=== PATIENT | male | born 1975 | race Caucasian/White ===

== ENCOUNTER → 2019-03-25 | Outpatient (CLI) | payer BC ==
--- NOTE | 2019-03-26 09:16 | US ---
EXAMINATION TYPE: US st tissue neck DATE OF EXAM: 03/25/2019 COMPARISON: NONE CLINICAL HISTORY: 43-year-old male R59.0 Anterior cervical lymphadenopathy Right. Right lateral anter ior neck palpable, patient states he has noticed it x 1 month. Patient states he has not been sick r ecently but has been very tired. TECHNIQUE: Targeted ultrasound examination at the patient's palpable site along the right lateral nec k. Findings: Area of palpable scanned. A heterogeneous hypoechoic, solid mass is identified with internal vascula rity anterior to the common carotid artery. This measures 3.9 x 2.9 x 1.5 cm. Contralateral image taken. On the contralateral side, prominent lymph node is present measuring 2.2 x 1.4 x 0.7 cm , this is borderline enlarged by short axis dimension. IMPRESSION: 1. Enlarged lymph node measuring 2.9 cm short axis at the right lateral neck palpable site. Tissue sa mpling can be considered especially if there are suspicious clinical features. 2. Borderline enlarged 1.4 cm short axis left lateral lymph node on the contralateral side.
== END ==
LOC: RADUSMAIN 15:53
PROVIDERS: ATTEND Family Medicine
DX: R59.0 Localized enlarged lymph nodes (principal)
CPT/HCPCS: 76536

== ENCOUNTER → 2019-05-04 | Outpatient (CLI) | payer BC ==
--- NOTE | 2019-05-04 14:51 | CT ---
EXAMINATION TYPE: CT soft tissue neck w con DATE OF EXAM: 05/04/2019 2:40 PM COMPARISON: None HISTORY: Right neck mass CT DLP: 724 mGycm Automated exposure control for dose reduction was used. CONTRAST: CT scan of the neck is performed following , patient injected with 100 mL of Isovue 300. Axial image s are obtained, coronal and sagittal reformatted images are reviewed. FINDINGS: There is a heterogeneous mass involving the right submandibular region of the soft tissues of the right neck with compression of the jugular vein. This appears to be posterior to the submandib ular gland and extending superiorly into the right carotid space. There also appears to be asymmetry to the mucosa of the base the tongue and hypopharynx on the right. Direct visualization is recommended. Oropharynx and nasopharynx and oropharynx symmetric. Parotid glands have a normal appearance. Vocal cords have a normal appearance. Thyroid enhances homogeneously. Lung apices clear. There is a lymph node measuring a short axis of 8 mm within the left carotid space. IMPRESSION: 1. There is a mass overlying the area of palpable abnormality within the right neck measuring 2.5 x 2 .0 x 3.3 cm. This results in compression of the right jugular vein. Would favor a partially necrotic area of pathologic lymphadenopathy overt primary neoplasm.. 2. There is slight asymmetry on the right within the mucosa of the base of the tongue and hypopharynx . Mucosal lesion in the differential diagnosis. Direct visualization suggested.
== END | disposition home or self-care (01) ==
LOC: RADCTMAIN 14:17
PROVIDERS: ATTEND Otolaryngology
DX: I87.1 Compression of vein (principal); R22.1 Localized swelling, mass and lump, neck
CPT/HCPCS: 70491; Q9967

== ENCOUNTER → 2019-06-20 | Outpatient (CLI) | payer BC ==
--- NOTE | 2019-06-24 09:50 | PE ---
Nuclear medicine PET/CT HISTORY: Metastatic squamous cell carcinoma, initial Patient received 8.2 mCi F-18 FDG intravenously in delayed scanning performed from the skull base to the mid thighs. Localization and attenuation correction CT scan was performed. Small [id number] im aging obtained through the neck. Correlation to CT soft tissue neck 05/04/2019 Neck and chest: The right neck node seen on prior CT at the level of the hyoid bone anterior to the r ight sternocleidomastoid muscle is noted measuring 2.8 cm and shows associated hypermetabolic uptake and SUV is 14.6. There is a left neck node as described on prior CT and anterior to the left sternocl eidomastoid muscle with associated hypermetabolic uptake, SUV is 4.4. At the base of the tongue there is hypermetabolic uptake present, SUV 10.2, unclear as to whether this represents mass, recommend di rect visualization. There is no evident lung mass. No mediastinal, axillary, or hilar adenopathy. Small hiatal hernia is present. No pleural or pericardial effusion. ABDOMEN: No evident liver mass. No suspicious hypermetabolic uptake. No retroperitoneal adenopathy. Osseous structures are unremarkable IMPRESSION: Findings consistent with patient's history of metastatic squamous cell carcinoma.
== END | disposition home or self-care (01) ==
LOC: RADPETMAIN 12:27
PROVIDERS: ATTEND Otolaryngology
DX: C76.0 Malignant neoplasm of head, face and neck (principal); Z85.828 Personal history of other malignant neoplasm of skin
CPT/HCPCS: 78815; A9552

== ENCOUNTER 2019-07-13 04:10 | Emergency (ER) | payer BC ==
[2019-07-13 04:21] VITALS: TEMP 98.9
[2019-07-13] MEDS ORDERED: OXYMETAZOLINE 0.05% NASL SPRAY 1 SPRAY BOTTLE NASAL STA (04:56)
[2019-07-13] MEDS ORDERED: cloNIDine HCL 0.2 MG TAB PO STA (04:57)
[2019-07-13] MEDS ORDERED: LABETALOL 5 MG/ML VIAL MDV IVP STA (05:51)
[2019-07-13] MEDS ORDERED: TRANEXAMIC ACID 500 MG in SODIUM CHLORIDE 0.9% 100 ML IVPB ONE ×2 (06:00→06:47)
[2019-07-13 06:10] LABS: Basophils % (A) 0 %; Eosinophils # (A) 0.1 k/uL (0-0.7); Eosinophils % (A) 1 %; HGB 15.1 gm/dL (13.0-17.5); Lymphocytes # (A) 1.7 k/uL (1.0-4.8); Lymphocytes % (A) 19 %; MCH 30.5 pg (25.0-35.0); MCHC 33.6 g/dL (31.0-37.0); MCV 90.8 fL (80.0-100.0); Mean Platelet Volume 6.4; Monocytes # (A) 0.7 k/uL (0-1.0); Monocytes % (A) 8 %; Neutrophils % (A) 69 %; Platelet Count 360 k/uL (150-450); RBC 4.96 m/uL (4.30-5.90); RDW 12.9 % (11.5-15.5); WBC 8.7 k/uL (3.8-10.6)
[2019-07-13 06:19] LABS: Calcium 9.3 mg/dL (8.4-10.2); Potassium 4.1 mmol/L (3.5-5.1)
--- NOTE | 2019-07-13 06:19 | ED ---
General Adult HPI - General Source: patient Mode of arrival: ambulatory Limitations: no limitations - History of Present Illness Onset/Timin -: hour(s) Radiation: non-radiation Consistency: constant Improves with: none Worsens with: none Treatments Prior to Arrival: none <Gio De La Fuente - Last Filed: 07/13/19 06:12> <Puneet Lozano - Last Filed: 07/14/19 20:59> - General Chief complaint: Recheck/Abnormal Lab/Rx Stated complaint: post throat op issue Time Seen by Provider: 07/13/19 04:22 - History of Present Illness Initial comments: This patient is a 44-year-old man who presents to have evaluation for spitting up blood. 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 Patient states that he had peritonsillar lesion excised and also biopsy of lymph nodes. He had been doing well until proximally an hour ago when he had some coughing. Following the coughing he noticed that he was continuously spitting blood. He states that it is also felt like some is been running down the back of his throat and that he was swallowing it. He has a little bit of nausea. Patient denies any symptoms of anemia. No dyspnea, diaphoresis, chest pain or palpitations. No syncope or orthostatic symptoms. (Gio De La Fuente) - Related Data Home Medications Medication Instructions Recorded Confirmed Unable To Assess [Unable to Assess] 07/13/19 07/13/19 Allergies Allergy/AdvReac Type Severity Reaction Status Date / Time No Known Allergies Allergy Verified 07/13/19 04:21 Review of Systems ROS Other: All systems not noted in ROS Statement are negative. Constitutional: Denies: fever, chills ENT: Denies: throat pain Respiratory: Reports: as per HPI, cough, hemoptysis. Denies: dyspnea, wheezes Cardiovascular: Denies: chest pain, palpitations, syncope Gastrointestinal: Reports: nausea. Denies: abdominal pain, vomiting Skin: Denies: rash Neurological: Denies: headache, weakness, numbness Hematological/Lymphatic: Denies: easy bleeding <Gio De La Fuente - Last Filed: 07/13/19 06:12> ROS Other: All systems not noted in ROS Statement are negative. <Puneet Lozano - Last Filed: 07/14/19 20:59> ROS Statement: Those systems with pertinent positive or pertinent negative responses have been documented in the HPI. Past Medical History Past Medical History: Asthma, Cancer, Hyperlipidemia, Hypertension Additional Past Medical History / Comment(s): Throat History of Any Multi-Drug Resistant Organisms: None Reported Past Surgical History: Tonsillectomy Additional Past Surgical History / Comment(s): Throat Past Psychological History: No Psychological Hx Reported Smoking Status: Never smoker Past Alcohol Use History: None Reported Past Drug Use History: None Reported <MaeGio rodriguez - Last Filed: 07/13/19 06:12> General Exam Limitations: no limitations General appearance: alert, in no apparent distress Head exam: Present: atraumatic, normocephalic Eye exam: Present: normal appearance ENT exam: Present: mucous membranes moist, other (Patient appears to have small amount of blood trickling from peritonsillar site. no active arterial bleeding) Neck exam: Present: normal inspection, full ROM Respiratory exam: Present: normal lung sounds bilaterally. Absent: respiratory distress, wheezes, rales, rhonchi, stridor Cardiovascular Exam: Present: regular rate, normal rhythm, normal heart sounds. Absent: systolic murmur, diastolic murmur, rubs, gallop GI/Abdominal exam: Present: soft. Absent: tenderness Extremities exam: Present: normal inspection, normal capillary refill. Absent: pedal edema Neurological exam: Present: alert Skin exam: Present: warm, dry, intact, normal color. Absent: rash <SudhakarGio - Last Filed: 07/13/19 06:12> Course Vital Signs 07/13/19 07/13/19 07/13/19 04:15 05:59 06:11 Temperature 98.9 F Pulse Rate 84 107 H 90 Respiratory 16 22 18 Rate Blood Pressure 147/107 144/111 146/110 O2 Sat by Pulse 97 97 96 Oximetry 07/13/19 07/13/19 07/13/19 06:17 06:29 07:14 Temperature Pulse Rate 84 87 86 Respiratory 18 18 16 Rate Blood Pressure 130/106 122/91 124/102 O2 Sat by Pulse 96 96 96 Oximetry 07/13/19 07:36 Temperature Pulse Rate Respiratory Rate Blood Pressure 127/98 O2 Sat by Pulse Oximetry Medical Decision Making - Lab Data Result diagrams: 07/13/19 05:55 <MaejenniferGio - Last Filed: 07/13/19 06:12> - Lab Data Result diagrams: 07/13/19 05:55 07/13/19 05:55 <Puneet Lozano - Last Filed: 07/14/19 20:59> - Medical Decision Making I spoke with Dr. Leslie and he wanted the patient transferred to [facility]. I spoke with [facility] and they agreed to accept the transfer. (Puneet Lozano) - Lab Data Lab Results 07/13/19 07/13/19 07/13/19 Range/Units 05:55 05:55 05:55 WBC 8.7 (3.8-10.6) k/uL RBC 4.96 (4.30-5.90) m/uL Hgb 15.1 (13.0-17.5) gm/dL Hct 45.0 (39.0-53.0) % MCV 90.8 (80.0-100.0) fL MCH 30.5 (25.0-35.0) pg MCHC 33.6 (31.0-37.0) g/dL RDW 12.9 (11.5-15.5) % Plt Count 360 (150-450) k/uL Neutrophils % 69 % Lymphocytes % 19 % Monocytes % 8 % Eosinophils % 1 % Basophils % 0 % Neutrophils # 6.0 (1.3-7.7) k/uL Lymphocytes # 1.7 (1.0-4.8) k/uL Monocytes # 0.7 (0-1.0) k/uL Eosinophils # 0.1 (0-0.7) k/uL Basophils # 0.0 (0-0.2) k/uL PT 9.6 (9.0-12.0) sec INR 0.9 (<1.2) APTT 28.5 (22.0-30.0) sec Sodium 138 (137-145) mmol/L Potassium 4.1 (3.5-5.1) mmol/L Chloride 101 (98-107) mmol/L Carbon Dioxide 26 (22-30) mmol/L Anion Gap 11 mmol/L BUN 19 (9-20) mg/dL Creatinine 1.15 (0.66-1.25) mg/dL Est GFR (CKD-EPI)AfAm 90 (>60 ml/min/1.73 sqM) Est GFR (CKD-EPI)NonAf 78 (>60 ml/min/1.73 sqM) Glucose 114 H (74-99) mg/dL Calcium 9.3 (8.4-10.2) mg/dL Disposition <Gio De La Fuente - Last Filed: 07/13/19 06:12> - Out of Hospital Transfer - Req. Specs Out of Hospital Transfer - Requested Specifics: Other Emergency Center ([facility] ER) <Puneet Lozano - Last Filed: 07/14/19 20:59> Clinical Impression: Postoperative or surgical complication Disposition: OTHER INSTITUTION NOT DEFINED Referrals: Paxton Morris MD [Primary Care Provider] - 1-2 days
[2019-07-13 06:20] LABS: INR 0.9 (<1.2); Partial Thromboplastin Time 28.5 sec (22.0-30.0); Prothrombin Time 9.6 sec (9.0-12.0)
[2019-07-13 07:16] VITALS: PULSE 86; RESP 16
[2019-07-13 07:36] VITALS: BP 127/98
== END 2019-07-13 08:27 | disposition other institution (70) ==
LOC: EC 04:10
DX: J95.830 Postprocedural hemorrhage of a respiratory system organ or structure following a respiratory system procedure (principal); Z90.89 Acquired absence of other organs
CPT/HCPCS: 36415; 80048; 85025; 85610; 85730; 96365; 99284

== ENCOUNTER 2019-09-24 15:44 | Inpatient (IN) | payer BC ==
--- NOTE | 2019-09-24 16:20 | ED ---
ENT HPI - General Source: patient, family Mode of arrival: ambulatory Limitations: no limitations <Esteban Chery - Last Filed: 09/24/19 20:06> <Catherine Ku - Last Filed: 09/29/19 13:36> - General Chief complaint: ENT Stated complaint: Radiation patient/No appetite Time Seen by Provider: 09/24/19 15:59 - History of Present Illness Initial comments: Patient is a 44-year-old male presenting to emergency Department with a chief complaint of sore throat. Patient reports that he has been ongoing radiation on his cervical lymph nodes with a last dose being yesterday. Patient reports after the radiation he has not been able to eat. Patient reports only drinking small amounts of water. Patient is concerned for the increased production of saliva. She reports he was given scopolamine patches in order to reduce the saliva production however continues. Patient does report some nausea but no vomiting. Patient denies spitting up any blood. Patient reports she has not been eating for further last 3 weeks. He reports his only been drinking about 8 ounces of water daily. (Esteban Chery) - Related Data Home Medications Medication Instructions Recorded Confirmed Atorvastatin [Lipitor] 10 mg PO DAILY 09/25/19 09/25/19 Fluticasone/Salmeterol [Advair 1 puff INHALATION RT-BID 09/25/19 09/25/19 250-50 Diskus] Losartan/Hydrochlorothiazide 1 tab PO DAILY 09/25/19 09/25/19 [Losartan-Hctz 100-12.5 mg Tab] Previous Rx's Medication Instructions Recorded HYDROcodone/APAP 5-325MG [Rebuck 1 each PO Q4HR PRN #12 tab 09/28/19 5-325] Lidocaine Viscous [Xylocaine 30 ml PO TID #30 ml 09/28/19 Viscous 2%] Mag Hydrox/Al Hydrox/Simeth 30 ml PO TID #60 cup 09/28/19 [Maalox] Metoprolol Tartrate [Lopressor] 25 mg PO BID 30 Days #60 tab 09/28/19 Nystatin 100,000 Unit/ml Susp 3,000,000 unit PO TID 10 Days #30 09/28/19 [Mycostatin Oral Susp] cup Polyethylene Glycol 3350 [Miralax] 17 gm PO DAILY PRN #30 powd.pack 09/28/19 diphenhydrAMINE ELIXIR [Benadryl 25 mg PO QID #60 cup 09/28/19 Elixir] Allergies Allergy/AdvReac Type Severity Reaction Status Date / Time peanut Allergy Unknown Verified 09/24/19 17:33 Review of Systems ROS Other: All systems not noted in ROS Statement are negative. <Esteban Chery - Last Filed: 09/24/19 20:06> ROS Other: All systems not noted in ROS Statement are negative. <Catherine Ku - Last Filed: 09/29/19 13:36> ROS Statement: Those systems with pertinent positive or pertinent negative responses have been documented in the HPI. Past Medical History Past Medical History: Asthma, Cancer, Hyperlipidemia, Hypertension Additional Past Medical History / Comment(s): Throat History of Any Multi-Drug Resistant Organisms: None Reported Past Surgical History: Tonsillectomy Additional Past Surgical History / Comment(s): Throat Past Psychological History: No Psychological Hx Reported Smoking Status: Never smoker Past Alcohol Use History: None Reported Past Drug Use History: None Reported <Esteban Chery - Last Filed: 09/24/19 20:06> General Exam Limitations: no limitations General appearance: alert, in no apparent distress Head exam: Present: atraumatic, normocephalic, normal inspection Eye exam: Present: normal appearance, PERRL, EOMI Pupils: Present: normal accommodation ENT exam: Present: normal exam, mucous membranes moist, normal external ear exam Neck exam: Present: normal inspection, tenderness (Bilateral anterior cervical tenderness), full ROM, other (Radiation bernabe along the anterior cervical lymph nodes) Respiratory exam: Present: normal lung sounds bilaterally Cardiovascular Exam: Present: normal rhythm, tachycardia, normal heart sounds Extremities exam: Present: normal inspection, full ROM Back exam: Present: normal inspection, full ROM Neurological exam: Present: alert, oriented X3 Psychiatric exam: Present: normal affect, normal mood Skin exam: Present: warm, intact, normal color <Esteban Chery - Last Filed: 09/24/19 20:06> Course Vital Signs 09/24/19 09/24/19 09/24/19 15:55 17:57 18:57 Temperature 99 F Pulse Rate 120 H 96 95 Respiratory 22 16 18 Rate Blood Pressure 132/92 141/105 143/105 O2 Sat by Pulse 96 97 96 Oximetry 09/24/19 09/24/19 09/24/19 19:57 20:44 21:00 Temperature 99.0 F Pulse Rate 86 87 98 Respiratory 16 16 20 Rate Blood Pressure 144/107 154/110 153/94 O2 Sat by Pulse 96 96 97 Oximetry 09/24/19 09/24/19 21:38 22:00 Temperature 98.3 F Pulse Rate 86 114 H Respiratory 18 18 Rate Blood Pressure 158/86 156/86 O2 Sat by Pulse 96 97 Oximetry Medical Decision Making - Lab Data Result diagrams: 09/24/19 16:35 09/24/19 16:35 <Esteban Chery - Last Filed: 09/24/19 20:06> - Lab Data Result diagrams: 09/28/19 08:55 09/28/19 08:55 <Catherine Ku - Last Filed: 09/29/19 13:36> - Medical Decision Making Patient is a 44-year-old male with history of throat cancer is presenting to emergency Department with a chief complaint of difficulty swallowing. Patient has finished his last radiation treatment and is continuing to have problems with swelling. Patient has had decreased intake of solids for the last 2 weeks where he has only been drinking about [address] of the soft tissue neck is negative for acute pathologies. There is no decrease in the size in the salivary glands. Patient will be admitted for IV fluids. Feeding tube placement was discussed with patient. Patient also reports hypertension however he is not been able to take his medication for the past 2 weeks due to inability to swallow. Patient is leukopenic. He does not have a fever at this time. Case discussed with Dr. Ku who is in agreement with the treatment plan. Admitting physician is Dr. Domínguez. Oncology consult. (Esteban Chery) I was available for consultation in the emergency department. The history and physical exam were done by the midlevel provider. I was consulted for this patients care. I reviewed the case with the midlevel provider and based on their presentation of the patient, I agree with the assessment, medical decision making and plan of care as documented. Dr. Cabral is the admitting physician. Chart was dictated using [employer] dictation software. Attempts were made to correct any dictation errors however some typographical errors may persist. (Catherine Ku) - Lab Data Lab Results 09/24/19 09/24/19 Range/Units 16:35 16:35 WBC 2.2 L (3.8-10.6) k/uL RBC 4.60 (4.30-5.90) m/uL Hgb 14.7 (13.0-17.5) gm/dL Hct 41.9 (39.0-53.0) % MCV 91.1 (80.0-100.0) fL MCH 32.0 (25.0-35.0) pg MCHC 35.2 (31.0-37.0) g/dL RDW 15.4 (11.5-15.5) % Plt Count 244 (150-450) k/uL Neutrophils % (Manual) 62 % Lymphocytes % (Manual) 7 % Monocytes % (Manual) 29 % Eosinophils % (Manual) 1 % Basophils % (Manual) 1 % Neutrophils # (Manual) 1.36 (1.3-7.7) k/uL Lymphocytes # (Manual) 0.15 L (1.0-4.8) k/uL Monocytes # (Manual) 0.64 (0-1.0) k/uL Eosinophils # (Manual) 0.02 (0-0.7) k/uL Basophils # (Manual) 0.02 (0-0.2) k/uL Nucleated RBCs 0 (0-0) /100 WBC Manual Slide Review Performed Anisocytosis (manual) Present Sodium 139 (137-145) mmol/L Potassium 4.0 (3.5-5.1) mmol/L Chloride 101 (98-107) mmol/L Carbon Dioxide 21 L (22-30) mmol/L Anion Gap 17 mmol/L BUN 20 (9-20) mg/dL Creatinine 0.84 (0.66-1.25) mg/dL Est GFR (CKD-EPI)AfAm >90 (>60 ml/min/1.73 sqM) Est GFR (CKD-EPI)NonAf >90 (>60 ml/min/1.73 sqM) Glucose 111 H (74-99) mg/dL Calcium 9.5 (8.4-10.2) mg/dL Total Bilirubin 1.5 H (0.2-1.3) mg/dL AST 22 (17-59) U/L ALT 31 (21-72) U/L Alkaline Phosphatase 86 (38-126) U/L Total Protein 6.9 (6.3-8.2) g/dL Albumin 4.0 (3.5-5.0) g/dL Disposition Is patient prescribed a controlled substance at d/c from ED?: No Time of Disposition: 20:09 <Esteban Chery - Last Filed: 09/24/19 20:06> <Catherine Ku - Last Filed: 09/29/19 13:36> Clinical Impression: Dysphagia, Dehydration Disposition: ADMITTED IP TO THIS HOSP Condition: Good
[2019-09-24 16:58] LABS: ALT 31 U/L (21-72); AST 22 U/L (17-59); African American GFR (CKD) >90 (>60 ml/min/1.73 sqM); Alkaline Phosphatase 86 U/L (38-126); Anion Gap 17 mmol/L; Blood Urea Nitrogen 20 mg/dL (9-20); Calcium 9.5 mg/dL (8.4-10.2); Carbon Dioxide 21 mmol/L (22-30); Chloride 101 mmol/L (98-107); Glucose 111 mg/dL (74-99); Non-African American GFR(CKD) >90 (>60 ml/min/1.73 sqM); Sodium 139 mmol/L (137-145); Total Bilirubin 1.5 mg/dL (0.2-1.3); Total Protein 6.9 g/dL (6.3-8.2)
[2019-09-24 17:00] LABS: HCT 41.9 % (39.0-53.0); HGB 14.7 gm/dL (13.0-17.5); MCHC 35.2 g/dL (31.0-37.0); MCV 91.1 fL (80.0-100.0); Mean Platelet Volume 5.6; Platelet Count 244 k/uL (150-450); RDW 15.4 % (11.5-15.5); WBC 2.2 k/uL (3.8-10.6)
[2019-09-24 17:22] LABS: Anisocytosis (M) Present; Basophils # (M) 0.02 k/uL (0-0.2); Eosinophils # (M) 0.02 k/uL (0-0.7); Lymphocytes # (M) 0.15 k/uL (1.0-4.8); Monocytes # (M) 0.64 k/uL (0-1.0); Neutrophils # (M) 1.36 k/uL (1.3-7.7); Neutrophils % (M) 62 %; Nucleated Red Blood Cells 0 /100 WBC (0-0); Total Cells Counted 100
--- NOTE | 2019-09-24 17:54 | CT ---
EXAMINATION TYPE: CT soft tissue neck w con DATE OF EXAM: 09/24/2019 5:45 PM COMPARISON: None HISTORY: Dysphagia, Recent radiation treatments CT DLP: 222.3 mGycm Automated exposure control for dose reduction was used. CONTRAST: CT scan of the neck is performed following with IV Contrast, patient injected with 100 mL of Isovue 3 00. Axial images are obtained, coronal and sagittal reformatted images are reviewed. FINDINGS: Aortic arch appears intact. There is patency of the great vessels. Thyroid gland is symmetric. There is normal contrast opacification of the carotid arteries and jugular veins. There is normal contrast opacification of the vertebral arteries. The prevertebral soft tissues are not enlarged. Epiglottis appears normal. Subglottic trachea appears normal. I see no evidence of a pharyngeal mass. The tongue is intact. There is some fatty replacement of the submandibular salivary glands. Parotid glands show fatty repla cement. There is salivary gland atrophy. There are a few anterior triangle cervical lymph nodes that measure up to 9 mm. There is no significant adenopathy. The cervical spine is intact. Skull base is intact. There is no pathologic enhancement. IMPRESSION: There are a few small nonspecific cervical lymph nodes. Salivary gland atrophy. No suspi cious neck mass.
[2019-09-24] MEDS ORDERED: NALOXONE 0.4 MG/ML 1 ML VIAL IV PRN (20:09)
[2019-09-24] MEDS ORDERED: ALPRAZolam 0.25 MG TAB PO PRN (20:09)
[2019-09-24] MEDS ORDERED: MORPHINE SULFATE 4 MG/ML SYRINGE IV PRN (20:09)
[2019-09-24] MEDS ORDERED: hydrALAZINE HCL 20 MG/ML 1 ML VIAL IVP STA (20:41)
[2019-09-24] MEDS: SODIUM CHLORIDE 0.9% 1,000 ML IV SCH (20:44)
[2019-09-24] MEDS ORDERED: MORPHINE SULFATE 4 MG/ML SYRINGE IVP STA (21:44)
[2019-09-25 01:27] VITALS: BMI 24.0
[2019-09-25] MEDS: HYDROmorphone 0.5 MG/0.5 ML SYRINGE IVP PRN ×5 (02:00→21:48)
[2019-09-25] MEDS: SODIUM CHLORIDE 0.9% 1,000 ML IV SCH ×2 (06:19→16:40)
[2019-09-25] MEDS: ENOXAPARIN 40 MG/0.4 ML SYRINGE SQ SCH (11:19)
--- NOTE | 2019-09-25 12:38 | FL ---
Modified barium swallow. HISTORY: Dysphagia. Modified barium swallow was performed with the department of speech pathology. The patient was prese nted with various consistencies of barium. There is no evidence for aspiration. Minimal transient penetration noted.. Full report is to follow from the department of speech pathology. Impression: Minimal transient penetration noted without evidence for aspiration.
[2019-09-25] MEDS: ONDANSETRON 4 MG/2 ML VIAL IVP PRN ×2 (14:00→21:54)
--- NOTE | 2019-09-25 17:07 | P.CONS ---
History of Present Illness - Reason for Consult Consult date: 09/25/19 Dysphagia, dehydration. Head and neck cancer on chemoradiation - History of Present Illness Mr Lovelace is a 44 yr old white male, with no major underlying medical problems. The patient had noted a mass in the right upper neck, around 03/20. This was mildly uncomfortable but did not have other associated symptoms. ultrasound in 03/25/19 confirmed a solid mass measuring 3.9 x 2.9 x 1.5 cm a left-sided node was seen at the time, measuring 2.2 x 1.4 cm He was seen by ENT, and had a needle aspiration on 04/21/19 revealing necrotic/degenerative cellular material and acute inflammation. He did have treatment with antibiotics, without improvement. CT of the soft tissue of the neck unsuccessful confirmed the presence of a mass, with slight asymmetry on the right within the mucosa of the base of the tongue and hypopharynx. 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 The patient was then referred to Dr. Leslie at the [facility]. He had triple endoscopy with biopsy as well as lingual tonsillectomy to try to define the primary. However these were negative. PET scan on 06/20/19 showed 2.8 cm mass in the right upper neck with SUV of 14.6, as well as a left neck node anterior to the left sternomastoid with SUV of 4.4. Hypermetabolic uptake was noted at the base of the tongue. The pt was recommended weekly cisplatin , concurrent with RT. His 1st dose was on 08/16/19. He is s/p 7 weekly cycles, completing chemo on 09/18/19. He completed radiation on 09/23/19. The patient has been having progressive dysphagia, especially over the last 2 weeks of treatment. He is also had significant upper airway secretions. This led to progressive difficulty in swallowing where he could only swallow small amounts of water. Because of thick secretions he was having difficulty handling those, and did experience nausea with several episodes of vomiting. He therefore came in to the emergency room and was admitted for further management. Labs also showed neutropenia. Consult was therefore placed for further evaluation and recommendations Review of Systems Constitutional: Reports poor appetite, Reports weakness, Reports weight loss Eyes: denies blurred vision, denies pain Ears: deny: decreased hearing, ear discharge, earache, tinnitus Ears, nose, mouth and throat: Reports dysphagia, Reports hoarseness, Reports neck fullness/pressure, Reports odynophagia, Reports swelling in throat, Reports sore throat Cardiovascular: Denies chest pain, Denies shortness of breath Respiratory: Denies cough Gastrointestinal: Reports constipation, Reports nausea, Reports vomiting Genitourinary: Reports as per HPI Musculoskeletal: Reports muscle weakness Integumentary: Reports color changes (Due to radiation affect and neck) Neurological: Reports weakness Psychiatric: Denies anxiety, Denies depression Endocrine: Reports fatigue, Reports weight change Hematologic/Lymphatic: Reports as per HPI Past Medical History Past Medical History: Asthma, Cancer, Hyperlipidemia, Hypertension Additional Past Medical History / Comment(s): Throat History of Any Multi-Drug Resistant Organisms: None Reported Past Surgical History: Tonsillectomy Additional Past Surgical History / Comment(s): Throat Past Psychological History: No Psychological Hx Reported Smoking Status: Never smoker Past Alcohol Use History: None Reported Past Drug Use History: None Reported - Past Family History Mother Family Medical History: Hypertension Medications and Allergies Home Medications Medication Instructions Recorded Confirmed Type Atorvastatin [Lipitor] 10 mg PO DAILY 09/25/19 09/25/19 History Fluticasone/Salmeterol [Advair 1 puff INHALATION RT-BID 09/25/19 09/25/19 History 250-50 Diskus] Losartan/Hydrochlorothiazide 1 tab PO DAILY 09/25/19 09/25/19 History [Losartan-Hctz 100-12.5 mg Tab] Allergies Allergy/AdvReac Type Severity Reaction Status Date / Time milk Allergy Unknown Verified 09/24/19 17:33 peanut Allergy Unknown Verified 09/24/19 17:33 Physical Exam Vitals: Vital Signs Temp Pulse Pulse Pulse Resp BP BP 09/25/19 08:46 16 09/25/19 07:00 98 F 105 H 17 128/67 09/25/19 05:46 98.3 F 115 H 16 131/81 09/24/19 22:34 98.1 F 120 H 16 140/89 09/24/19 22:00 98.3 F 114 H 18 156/86 09/24/19 21:38 86 18 158/86 09/24/19 21:00 98 20 153/94 09/24/19 20:44 87 16 154/110 09/24/19 19:57 99.0 F 86 16 144/107 09/24/19 18:57 95 18 143/105 09/24/19 17:57 96 16 141/105 09/24/19 15:55 99 F 120 H 22 132/92 Pulse Ox 09/25/19 08:46 09/25/19 07:00 98 09/25/19 05:46 94 L 09/24/19 22:34 95 09/24/19 22:00 97 09/24/19 21:38 96 09/24/19 21:00 97 09/24/19 20:44 96 09/24/19 19:57 96 09/24/19 18:57 96 09/24/19 17:57 97 09/24/19 15:55 96 Intake and Output 09/24/19 09/25/19 09/25/19 22:59 06:59 14:59 Intake Total 700 Balance 700 Intake: Intake, IV Titration 700 Amount Sodium Chloride 0.9% 1, 700 000 ml @ 100 mls/hr IV . Q10H TEN Rx#:[id number] Oral 0 Other: Voiding Method Toilet # Voids 1 1 Weight 73.936 kg - Constitutional General appearance: no acute distress - EENT A diffuse erythema oral cavity, with some swelling of the tongue. Thick secretions noted in the posterior oropharynx Eyes: EOMI, PERRLA - Neck Radiation induced skin changes affecting the neck diffusely bilaterally Thyroid: bilateral: normal size - Respiratory Respiratory: bilateral: CTA - Cardiovascular Rhythm: regular Heart sounds: normal: S1, S2 - Gastrointestinal General gastrointestinal: normal bowel sounds, soft - Integumentary Redness, induration, and discoloration affecting the neck due to radiation effect Integumentary: calor - Neurologic Neurologic: CNII-XII intact - Musculoskeletal Musculoskeletal: generalized weakness, strength equal bilaterally - Psychiatric Psychiatric: A&O x's 3, appropriate affect Results CBC & Chem 7: 09/24/19 16:35 09/24/19 16:35 Labs: Abnormal Lab Results - Last 24 Hours (Table) 09/24/19 09/24/19 Range/Units 16:35 16:35 WBC 2.2 L (3.8-10.6) k/uL Lymphocytes # (Manual) 0.15 L (1.0-4.8) k/uL Carbon Dioxide 21 L (22-30) mmol/L Glucose 111 H (74-99) mg/dL Total Bilirubin 1.5 H (0.2-1.3) mg/dL Comments: Reports a computed tomography scan neck, and video swallowing eval reviewed Assessment and Plan (1) Dysphagia Narrative/Plan: This is multifactorial, due to chemo radiation-induced pharyngitis and esophagitis, as well as very thick upper airway secretions also caused by radiation induced inflammation. This hasn't progressive in nature. Esophagitis is worsened by his coexisting neutropenia. However the patient is still able to swallow small amounts of water. - He was advised that if he was still able to swallow at least clear liquids, he would expect more rapid recovery. In fact significant improvement should start once WBC recovers. - Supportive care with IV hydration - He is on scopolamine patch to reduce secretion - The patient has milk intolerance and therefore options with clear liquids a very limited since most of them are milk based. We will therefore try full liquids and see how he tolerates it. He does say that his swallowing feels bett er today. - As he can swallow clears at least at this time, an improvement is expected, a PEG tube is not indicated at this time Current Visit: Yes Status: Acute Code(s): R13.10 - DYSPHAGIA, UNSPECIFIED SNOMED Code(s): 78921175 (2) Leucopenia Narrative/Plan: This is due to chemotherapy effect. This is likely aggravating his pharyngitis and mucositis. He will be started on G-CSF to expedite WBC recovery. Current Visit: Yes Status: Acute Code(s): D72.819 - DECREASED WHITE BLOOD CELL COUNT, UNSPECIFIED SNOMED Code(s): 50497146 (3) Head and neck cancer Narrative/Plan: Diagnostic and therapeutic circumstances as described. He has completed chemoradiation. On exam right upper neck mass has resolved. Follow-up imaging and exams to be set up once inflammation from radiation is resolved, which is usually after about 5-6 weeks Current Visit: Yes Status: Acute Code(s): C76.0 - MALIGNANT NEOPLASM OF HEAD, FACE AND NECK SNOMED Code(s): 513832663
[2019-09-25] MEDS: FILGRASTIM-SNDZ 480 MCG/0.8 ML SYRINGE SQ SCH (18:50)
[2019-09-25] MEDS ORDERED: BENZOCAINE SPRAY 1 CAN MUCOUS MEM PRN (20:34)
--- NOTE | 2019-09-25 20:47 | P.HPIM ---
History of Present Illness H&P Date: 09/25/19 Chief Complaint: Difficulty swallowing History of presenting complaint: This is a very pleasant 44-year-old patient of Dr. Morris. Patient's oncologist is Dr. Vergara from his radiation oncologist is Dr. Vickers. Patient has a diagnosis of HPV induced throat cancer. Patient beginning treatment since August 06. Patient received chemotherapy. And has recently been receiving daily radiation to the throat area. Patient presents with 4-5 days of worsening throat pain. Increased throat secretion trouble swallowing. Also vomiting. Patient is becoming weak and tired. Not able to keep anything down. Became dizzy. At that time so throat is really painful. No fever no chills. Patient's family present in the room with him. Other chronic stable medical conditions include asthma, hypertension, hyperlipidemia. No fever or chills. After presentation when I saw this patient does morning he is able to take some fluids down. IV fluids were started. Review of systems: GEN.: Tired and dizzy EYES: None HEENT: As above NECK: None RESPIRATORY: As above CARDIOVASCULAR: None GASTROINTESTINAL: None GENITOURINARY: None MUSCULOSKELETAL: None LYMPHATICS: None HEMATOLOGICAL: None PSYCHIATRY: None NEUROLOGICAL: None Past medical history to include: Asthma, hyperlipidemia, hypertension, throat cancer Social history: Does not smoke. No alcohol. Lives with his fiance. Works in a factory Physical examination: VITAL SIGNS: 99, 120, 22, 132/92, 96% room air GENERAL: 24.1, sitting up tired appearing. EYES: Pupils equal. Conjunctiva normal. HEENT: External appearance of nose and ears normal, oral cavity and the pharyngeal area shows whitefirm discoloration. NECK: JVD not raised; masses not palpable. HEART: First and second heart sounds are normal; no edema. LUNGS: Respiratory rate normal; clear to auscultation. ABDOMEN: Soft, nontender, liver spleen not palpable, no masses palpable. PSYCH: Alert and oriented x3; mood and affect normal. NEUROLOGICAL: Cranial nerves grossly intact; no facial asymmetry, power and sensation grossly intact. LYMPHATICS: No lymph nodes palpable in the axilla and neck INVESTIGATIONS, reviewed in the clinical context: White count 2.2 hemoglobin 14.7 platelets 244 potassium 4. bun 20 creatinine 0.8 Computed tomography scan of the soft tissue of the neck without contrast shows a few small nonspecific cervical lymph nodes. Celebrity clinical atrophic post suspicion neck mass Assessment: -Acute radiation-induced pharyngitis, causing increased retained secretions and difficulty with swallowing the same. With moderate to severe pain associated with inflammation from the same. -Throat cancer undergoing chemoradiation -Leukopenia secondary to chemotherapy -Essential hypertension -Hyperlipidemia Mild persistent asthma -Chronic lactose intolerance Plan: Patient is already been tolerating some ulis roberta. Trileptal white extremes of temperature with liquid suspect a very cold or very hot. Also will add Benadryl 25 mg every 6 to cut back her secretions and also reviews Robinul 1 mg every 4 hours while awake to contact the secretion. We will also use a topical spray as a local anesthetic pain becomes uncontrolled. Patient told told to advance his diet as tolerated. Consultations by Dr. Dr. Vergara. Care was discussed with the patient and family the bedside.. Past Medical History Past Medical History: Asthma, Cancer, Hyperlipidemia, Hypertension Additional Past Medical History / Comment(s): Throat History of Any Multi-Drug Resistant Organisms: None Reported Past Surgical History: Tonsillectomy Additional Past Surgical History / Comment(s): Throat Past Psychological History: No Psychological Hx Reported Smoking Status: Never smoker Past Alcohol Use History: None Reported Past Drug Use History: None Reported - Past Family History Mother Family Medical History: Hypertension Medications and Allergies Home Medications Medication Instructions Recorded Confirmed Type Atorvastatin [Lipitor] 10 mg PO DAILY 09/25/19 09/25/19 History Fluticasone/Salmeterol [Advair 1 puff INHALATION RT-BID 09/25/19 09/25/19 History 250-50 Diskus] Losartan/Hydrochlorothiazide 1 tab PO DAILY 09/25/19 09/25/19 History [Losartan-Hctz 100-12.5 mg Tab] Allergies Allergy/AdvReac Type Severity Reaction Status Date / Time milk Allergy Unknown Verified 09/24/19 17:33 peanut Allergy Unknown Verified 09/24/19 17:33 Physical Exam Vitals: Vital Signs Temp Pulse Pulse Resp BP BP Pulse Ox 09/25/19 08:46 16 09/25/19 05:46 98.3 F 115 H 16 131/81 94 L 09/24/19 22:34 98.1 F 120 H 16 140/89 95 09/24/19 22:00 98.3 F 114 H 18 156/86 97 09/24/19 21:38 86 18 158/86 96 09/24/19 21:00 98 20 153/94 97 09/24/19 20:44 87 16 154/110 96 09/24/19 19:57 99.0 F 86 16 144/107 96 09/24/19 18:57 95 18 143/105 96 09/24/19 17:57 96 16 141/105 97 09/24/19 15:55 99 F 120 H 22 132/92 96 Intake and Output 09/24/19 09/25/19 09/25/19 22:59 06:59 14:59 Intake Total 700 Balance 700 Intake: Intake, IV Titration 700 Amount Sodium Chloride 0.9% 1, 700 000 ml @ 100 mls/hr IV . Q10H TEN Rx#:[id number] Oral 0 Other: Voiding Method Toilet # Voids 1 1 Weight 73.936 kg Results CBC & Chem 7: 09/24/19 16:35 09/24/19 16:35 Labs: Abnormal Lab Results - Last 24 Hours (Table) 09/24/19 09/24/19 Range/Units 16:35 16:35 WBC 2.2 L (3.8-10.6) k/uL Lymphocytes # (Manual) 0.15 L (1.0-4.8) k/uL Carbon Dioxide 21 L (22-30) mmol/L Glucose 111 H (74-99) mg/dL Total Bilirubin 1.5 H (0.2-1.3) mg/dL Thrombosis Risk Factor Assmnt - Choose All That Apply Any of the Below Risk Factors Present?: Yes Each Factor Represents 1 point: Age 41-60 years Other Risk Factors: Yes Each Risk Factor Represents 2 Points: Malignancy Other congenital or acquired thrombophilia - If yes, enter type in comment: No Thrombosis Risk Factor Assessment Total Risk Factor Score: 3 Thrombosis Risk Factor Assessment Level: Moderate Risk
[2019-09-25] MEDS: GLYCOPYRROLATE 1 MG TAB PO SCH (21:50)
[2019-09-25] MEDS: diphenhydrAMINE ELIXIR 25 MG/10 ML CUP PO SCH (21:50)
[2019-09-26] MEDS: SODIUM CHLORIDE 0.9% 1,000 ML IV SCH ×3 (00:38→20:49)
[2019-09-26] MEDS: GLYCOPYRROLATE 1 MG TAB PO SCH ×7 (00:38→23:35)
[2019-09-26] MEDS: HYDROmorphone 0.5 MG/0.5 ML SYRINGE IVP PRN ×6 (01:09→23:35)
[2019-09-26] MEDS: diphenhydrAMINE ELIXIR 25 MG/10 ML CUP PO SCH ×4 (08:42→20:49)
[2019-09-26] MEDS: FILGRASTIM-SNDZ 480 MCG/0.8 ML SYRINGE SQ SCH (08:42)
[2019-09-26] MEDS: ONDANSETRON 4 MG/2 ML VIAL IVP PRN (08:47)
[2019-09-26] MEDS: ENOXAPARIN 40 MG/0.4 ML SYRINGE SQ SCH (09:25)
[2019-09-26] MEDS ORDERED: POLYETHYLENE GLYCOL 3350 17 GM POWD.PACK PO PRN (15:06)
--- NOTE | 2019-09-26 16:36 | P.PN ---
Subjective patient is admitted for Radiation-induced pharyngitis mucositis. Patient has a day head and neck cancer for which patient is receiving radiation therapy. Patient is also being treated for dehydration intravascular depletion patient is tachycardic because of dehydration continue with IV fluids for now. Constitutional: Denied any fatigue denied any fever. Cardio vascular: denied any chest pain, palpitations Gastrointestinal nausea and vomiting did improve Pulmonary: Denied any shortness of breath cough Neurologic denied any new focal deficits All inpatient medications were reviewed and appropriate changes in these medications as dictated in the interval history and assessment and plan. Objective - Vital Signs Vital signs: Vital Signs Temp 98 F 09/26/19 12:11 Pulse 112 H 09/26/19 12:11 Resp 16 09/26/19 12:11 BP 146/97 09/26/19 12:11 Pulse Ox 94 L 09/26/19 12:11 Intake & Output 09/25/19 09/26/19 09/26/19 18:59 06:59 18:59 Intake Total 1400 1920 Balance 1400 1920 Weight 73.936 kg Intake: Intake, IV Titration 900 1000 Amount Sodium Chloride 0.9% 1, 900 1000 000 ml @ 100 mls/hr IV . Q10H TEN Rx#:[id number] Oral 500 920 Other: Voiding Method Toilet Toilet Toilet # Voids 2 1 3 - Exam PHYSICAL EXAMINATION: GENERAL: The patient is alert and oriented x3, not in any acute distress. Well developed, well nourished. HEENT: Pupils are round and equally reacting to light. EOMI. No scleral icterus. No conjunctival pallor. Normocephalic, atraumatic. No pharyngeal erythema. No thyromegaly. CARDIOVASCULAR: S1 and S2 present. No murmurs, rubs, or gallops. PULMONARY: Chest is clear to auscultation, no wheezing or crackles. ABDOMEN: Soft, nontender, nondistended, normoactive bowel sounds. No palpable organomegaly. MUSCULOSKELETAL: No joint swelling or deformity. EXTREMITIES: No cyanosis, clubbing, or pedal edema. NEUROLOGICAL: Gross neurological examination did not reveal any focal deficits. SKIN: No rashes. - Labs CBC & Chem 7: 09/24/19 16:35 09/24/19 16:35 Assessment and Plan Plan: acute pharyngitis from radiation: We will use symptomatic treatment with cool solution patient is a liquid diet which will continue advance as tolerated -Leukopenia secondary to chemotherapy. Cancer -Essential hypertension -Hyperlipidemia -History of chronic intermittent asthma without any acute exacerbation -dehydration because of nausea vomiting: Continue with IV fluids
[2019-09-26] MEDS: MAG HYDROX/AL HYDROX/SIMETH 30 ML, LIDOCAINE VISCOUS 30 ML, diphenhydrAMINE ELIXIR 75 M... PO SCH ×8 (16:55→20:49)
[2019-09-27] MEDS: HYDROmorphone 0.5 MG/0.5 ML SYRINGE IVP PRN ×7 (02:00→23:37)
[2019-09-27] MEDS: GLYCOPYRROLATE 1 MG TAB PO SCH ×6 (04:14→23:37)
[2019-09-27] MEDS: ENOXAPARIN 40 MG/0.4 ML SYRINGE SQ SCH (08:31)
[2019-09-27] MEDS: diphenhydrAMINE ELIXIR 25 MG/10 ML CUP PO SCH ×4 (08:32→20:32)
[2019-09-27] MEDS: SODIUM CHLORIDE 0.9% 1,000 ML IV SCH ×2 (08:32→19:49)
[2019-09-27] MEDS: MAG HYDROX/AL HYDROX/SIMETH 30 ML, LIDOCAINE VISCOUS 30 ML, diphenhydrAMINE ELIXIR 75 M... PO SCH ×12 (09:30→22:10)
[2019-09-27] MEDS: FILGRASTIM-SNDZ 480 MCG/0.8 ML SYRINGE SQ SCH ×2 (11:36→13:34)
[2019-09-27] MEDS: ONDANSETRON 4 MG/2 ML VIAL IVP PRN (13:33)
--- NOTE | 2019-09-27 15:57 | P.PN ---
Subjective patient is admitted for Radiation-induced pharyngitis mucositis. Patient has a day head and neck cancer for which patient is receiving radiation therapy. Patient is also being treated for dehydration intravascular depletion patient is tachycardic because of dehydration continue with IV fluids for now. 09/22/2019 Patient is feeling better we'll advance the diet possibly of discharge tomorrow patient remains tachycardic will obtain a TSH Constitutional: Denied any fatigue denied any fever. Cardio vascular: denied any chest pain, palpitations Gastrointestinal nausea and vomiting did improve Pulmonary: Denied any shortness of breath cough Neurologic denied any new focal deficits All inpatient medications were reviewed and appropriate changes in these medications as dictated in the interval history and assessment and plan. Objective - Vital Signs Vital signs: Vital Signs Temp 97.9 F 09/27/19 11:38 Pulse 118 H 09/27/19 11:38 Resp 16 09/27/19 11:38 BP 129/79 09/27/19 11:38 Pulse Ox 94 L 09/27/19 11:38 Intake & Output 09/26/19 09/27/19 09/27/19 18:59 06:59 18:59 Intake Total 208 160 Balance 208 160 Weight 73.936 kg Intake: Intake, IV Titration 1000 Amount Sodium Chloride 0.9% 1, 1000 000 ml @ 100 mls/hr IV . Q10H [facility] Rx#:[id number] Oral 1080 160 Other: Voiding Method Toilet Toilet Toilet # Voids 3 1 3 - Exam PHYSICAL EXAMINATION: GENERAL: The patient is alert and oriented x3, not in any acute distress. Well developed, well nourished. HEENT: Pupils are round and equally reacting to light. EOMI. No scleral icterus. No conjunctival pallor. Normocephalic, atraumatic. No pharyngeal erythema. No thyromegaly. CARDIOVASCULAR: S1 and S2 present. No murmurs, rubs, or gallops. PULMONARY: Chest is clear to auscultation, no wheezing or crackles. ABDOMEN: Soft, nontender, nondistended, normoactive bowel sounds. No palpable o rganomegaly. MUSCULOSKELETAL: No joint swelling or deformity. EXTREMITIES: No cyanosis, clubbing, or pedal edema. NEUROLOGICAL: Gross neurological examination did not reveal any focal deficits. SKIN: No rashes. - Labs CBC & Chem 7: 09/24/19 16:35 09/24/19 16:35 Assessment and Plan Plan: acute pharyngitis from radiation: We will use symptomatic treatment with cool solution patient is a liquid diet which will continue advance as tolerated -Leukopenia secondary to chemotherapy. Cancer -Essential hypertension -Sinus tachycardia will obtain a TSH level will also order rheumatoid wall etiology of tachycardia is not clear. -Hyperlipidemia -History of chronic intermittent asthma without any acute exacerbation -dehydration because of nausea vomiting: Continue with IV fluids dehydration improved
[2019-09-27] MEDS: METOPROLOL TARTRATE 25 MG TAB PO SCH (20:21)
[2019-09-28] MEDS: GLYCOPYRROLATE 1 MG TAB PO SCH ×3 (04:58→12:22)
[2019-09-28] MEDS: SODIUM CHLORIDE 0.9% 1,000 ML IV SCH (04:59)
[2019-09-28] MEDS: HYDROmorphone 0.5 MG/0.5 ML SYRINGE IVP PRN ×2 (06:42→09:47)
[2019-09-28 09:23] LABS: ALT 21 U/L (21-72); AST 19 U/L (17-59); African American GFR (CKD) >90 (>60 ml/min/1.73 sqM); Albumin 2.9 g/dL (3.5-5.0); Alkaline Phosphatase 89 U/L (38-126); Anion Gap 10 mmol/L; Blood Urea Nitrogen 3 mg/dL (9-20); Calcium 8.1 mg/dL (8.4-10.2); Carbon Dioxide 25 mmol/L (22-30); Chloride 100 mmol/L (98-107); Glucose 84 mg/dL (74-99); Non-African American GFR(CKD) >90 (>60 ml/min/1.73 sqM); Sodium 135 mmol/L (137-145); Total Protein 5.4 g/dL (6.3-8.2)
[2019-09-28 09:27] LABS: Basophils % (A) 0 %; Eosinophils % (A) 0 %; HCT 33.8 % (39.0-53.0); Lymphocytes # (A) 0.1 k/uL (1.0-4.8); Lymphocytes % (A) 2 %; MCH 31.6 pg (25.0-35.0); MCHC 33.9 g/dL (31.0-37.0); MCV 93.2 fL (80.0-100.0); Mean Platelet Volume 5.7; Monocytes # (A) 0.4 k/uL (0-1.0); Monocytes % (A) 7 %; Neutrophils # (A) 4.8 k/uL (1.3-7.7); Neutrophils % (A) 88 %; Platelet Count 182 k/uL (150-450); RBC 3.63 m/uL (4.30-5.90); RDW 15.9 % (11.5-15.5); WBC 5.4 k/uL (3.8-10.6)
[2019-09-28 09:28] LABS: HGB 11.5 gm/dL (13.0-17.5)
[2019-09-28] MEDS: FILGRASTIM-SNDZ 480 MCG/0.8 ML SYRINGE SQ SCH (09:45)
[2019-09-28] MEDS: ONDANSETRON 4 MG/2 ML VIAL IVP PRN (09:45)
[2019-09-28] MEDS: MAG HYDROX/AL HYDROX/SIMETH 30 ML, LIDOCAINE VISCOUS 30 ML, diphenhydrAMINE ELIXIR 75 M... PO SCH ×4 (09:48)
[2019-09-28] MEDS: ENOXAPARIN 40 MG/0.4 ML SYRINGE SQ SCH (09:49)
[2019-09-28] MEDS: diphenhydrAMINE ELIXIR 25 MG/10 ML CUP PO SCH (09:50)
[2019-09-28] MEDS ORDERED: HYDROcodone/APAP 5-325MG 1 EACH TAB PO PRN (10:15)
[2019-09-28] MEDS ORDERED: BISACODYL 10 MG SUPP RECTAL STA (10:15)
[2019-09-28] MEDS: METOPROLOL TARTRATE 25 MG TAB PO SCH (11:33)
[2019-09-28 11:40] LABS: T4, Free (Free Thyroxine) 2.01 ng/dL (0.78-2.19)
[2019-09-28 11:42] VITALS: BP 129/79; PULSE 107; RESP 18; TEMP 98.1
--- NOTE | 2019-09-29 08:30 | P.DS ---
Providers Date of admission: 09/26/19 12:27 Expected date of discharge: 09/28/19 Attending physician: Clement Cabral Consults: 09/24/19 20:09 Consult Physician Stat Consulting Provider: Kevan Vergara Consult Reason/Comments: throat cancer, leukopenia Do you want consulting provider notified?: Yes Primary care physician: Paxton Morris Hospital Course: Final diagnosis -acute pharyngitis from radiation -Leukopenia secondary to chemotherapy -Essential hypertension -Sinus tachycardia -Hyperlipidemia -History of chronic intermittent asthma without any acute exacerbation -dehydration due to nausea/ vomiting Discharge disposition Patient is being discharged in a stable condition with guarded prognosis to home. Patient will follow-up with primary care provider as well as oncology upon discharge. Total time taken is 35 minutes. History of present illness This is a 44-year-old who was recently admitted for radiation-induced pharyngitis and mucositis and was being closely monitored. Oncology was following. Patient has recently received radiation therapy for head and neck cancer. Patient continued to have increased secretions and severe throat discomfort with swallowing. He should also continue to have nausea and vomiting which possibly caused the dehydration. Patient will follow-up with oncology in the outpatient setting upon discharge. During hospitalization patient was tachycardic and started on metoprolol 25 mg twice daily and will follow-up with primary care provider upon discharge. TSH was checked and was 0.433. Patient will be following up with primary care provider upon discharge. During hospitalization patient's nausea and vomiting improved and patient was able to tolerate diet in small amounts with the aid of cools solution and will continue this upon discharge. Currently patient's condition is stable with improvement and would like to be discharged home today. Patient denies any chest pain, shortness of breath, or palpitations at this time. Patient has been afebrile. Patient's nausea and vomiting has subsided and has been able to tolerate diet. Patient was having some minor discomfort in the abdomen due to constipation possibly related to IV pain medications and will continue with Dulcolax along with MiraLAX upon discharge. Guarded prognosis. On exam vital signs are stable. Blood pressure is 129/79 , pulse is 107 , Respirations are 18 , temp is 98.1 degrees Fahrenheit, oxygen saturation is 94 % on room air. Cardio S1 and S2 are present. Respiratory system shows clear to auscultation. Abdomen is soft and nontender. Nervous system shows no focal deficits. Please refer to medication reconciliation sheet for a list of medications. Patient Condition at Discharge: Good Plan - Discharge Summary New Discharge Prescriptions: New diphenhydrAMINE ELIXIR [Benadryl Elixir] 25 mg PO QID #60 cup Metoprolol Tartrate [Lopressor] 25 mg PO BID 30 Days #60 tab Mag Hydrox/Al Hydrox/Simeth [Maalox] 30 ml PO TID #60 cup Polyethylene Glycol 3350 [Miralax] 17 gm PO DAILY PRN #30 powd.pack PRN Reason: Constipation Nystatin 100,000 Unit/ml Susp [Mycostatin Oral Susp] 3,000,000 unit PO TID 10 Days #30 cup HYDROcodone/APAP 5-325MG [[place] 5-325] 1 each PO Q4HR PRN #12 tab PRN Reason: Moderate Pain Lidocaine Viscous [Xylocaine Viscous 2%] 30 ml PO TID #30 ml Continue Losartan/Hydrochlorothiazide [Losartan-Hctz 100-12.5 mg Tab] 1 tab PO DAILY Atorvastatin [Lipitor] 10 mg PO DAILY Fluticasone/Salmeterol [Advair 250-50 Diskus] 1 puff INHALATION RT-BID Discharge Medication List Atorvastatin [Lipitor] 10 mg PO DAILY 09/25/19 [History] Fluticasone/Salmeterol [Advair 250-50 Diskus] 1 puff INHALATION RT-BID 09/25/19 [History] Losartan/Hydrochlorothiazide [Losartan-Hctz 100-12.5 mg Tab] 1 tab PO DAILY 09/25/19 [History] HYDROcodone/APAP 5-325MG [[place] 5-325] 1 each PO Q4HR PRN #12 tab 09/28/19 [Rx] Lidocaine Viscous [Xylocaine Viscous 2%] 30 ml PO TID #30 ml 09/28/19 [Rx] Mag Hydrox/Al Hydrox/Simeth [Maalox] 30 ml PO TID #60 cup 09/28/19 [Rx] Metoprolol Tartrate [Lopressor] 25 mg PO BID 30 Days #60 tab 09/28/19 [Rx] Nystatin 100,000 Unit/ml Susp [Mycostatin Oral Susp] 3,000,000 unit PO TID 10 Days #30 cup 10/28/19 [Rx] Polyethylene Glycol 3350 [Miralax] 17 gm PO DAILY PRN #30 powd.pack 09/28/19 [Rx] diphenhydrAMINE ELIXIR [Benadryl Elixir] 25 mg PO QID #60 cup 09/28/19 [Rx] Follow up Appointment(s)/Referral(s): Kevan Vergara MD [STAFF PHYSICIAN] - 10/08/19 9:45 am ([facility] [place] [facility]) Paxton Morris MD [Primary Care Provider] - 09/30/19 11:00 am Patient Instructions/Handouts: Dehydration (ED) Activity/Diet/Wound Care/Special Instructions: activity limited until follow up continue current diet follow up with pcp and oncologist upon discharge Discharge Disposition: HOME SELF-CARE
== END 2019-09-28 14:25 | disposition home or self-care (01) | DRG 159 ==
LOC: EC 15:44 → 3NMEDONC 20:02 → OBSVTOIN 09-26 12:27
PROVIDERS: ADMIT Hospitalist; ATTEND Hospitalist
DX: K12.31 Oral mucositis (ulcerative) due to antineoplastic therapy (principal); D70.1 Agranulocytosis secondary to cancer chemotherapy; C14.0 Malignant neoplasm of pharynx, unspecified; E73.9 Lactose intolerance, unspecified; E78.5 Hyperlipidemia, unspecified; E86.0 Dehydration; I10 Essential (primary) hypertension; T45.1X5A Adverse effect of antineoplastic and immunosuppressive drugs, initial encounter; J45.30 Mild persistent asthma, uncomplicated; K20.9 Esophagitis, unspecified; R11.2 Nausea with vomiting, unspecified; Z79.899 Other long term (current) drug therapy; Z91.010 Allergy to peanuts; Y84.2 Radiological procedure and radiotherapy as the cause of abnormal reaction of the patient, or of later complication, without mention of misadventure at the time of the procedure
CPT/HCPCS: 36415; 70491; 74230; 80053; 84439; 84443; 85025; 96374; 96375; 99285

== ENCOUNTER → 2019-12-19 | Outpatient (CLI) | payer BC ==
--- NOTE | 2019-12-21 12:01 | PE ---
Nuclear medicine PET/CT HISTORY: Head and neck carcinoma, subsequent Patient received 12.4 mCi F-18 FDG intravenously in delayed scanning was performed from the skull bas e to the mid thighs. Small [id number] imaging also performed through the head and neck. Localizati on and attenuation correction CT scan was performed. Correlation to prior nuclear medicine PET/CT 06/20/2019 Head and neck: No suspicious residual mass or uptake. No evident cervical or supraclavicular adenopat hy. CHEST: No evident lung mass. No suspicious hypermetabolic uptake. No axillary, mediastinal, or hilar uptake. No pleural effusion ABDOMEN: No evident adrenal or liver mass. No retroperitoneal adenopathy. No suspicious hypermetaboli c uptake. There is no free fluid. Prostate is prominent in appearance. Osseous structures show no suspicious uptake. IMPRESSION: No suspicious hypermetabolic uptake is evident.
== END | disposition home or self-care (01) ==
LOC: RADPETMAIN 08:58
PROVIDERS: ATTEND Radiology Radiation Oncology
DX: C80.1 Malignant (primary) neoplasm, unspecified (principal); C77.0 Secondary and unspecified malignant neoplasm of lymph nodes of head, face and neck
CPT/HCPCS: 78815; A9552

== ENCOUNTER → 2020-03-08 | Outpatient (CLI) | payer BC ==
--- NOTE | 2020-03-08 10:50 | CT ---
EXAMINATION TYPE: CT neck chest w con DATE OF EXAM: 03/08/2020 COMPARISON: PET CT 12/19/[address] neck 09/24/2019. PET/CT 06/20/2019. HISTORY: 44-year-old male C7 6.0, follow up for neck and chest cancer TECHNIQUE: Contiguous axial scanning of the soft tissues of the neck and chest performed with IV Cont rast, patient injected with 100 mL of Isovue 300. Coronal/sagittal reconstructions performed. CT DLP: 593.4 mGycm Automated exposure control for dose reduction was used. FINDINGS: NECK: Visualized intracranial structures, orbits and globes, paranasal sinuses, and mastoid air cells appea r clear. Nasopharynx is clear. Slight asymmetric effacement right vallecular space is unchanged back to 09/24/2019. Asymmetric effac ement of the right piriform sinus slightly increased. Some mild circumferential mucosal thickening in the hypopharyngeal region, likely chronic posttreatment change. Right lateral cervical lymph node measures 7 mm, unchanged, corresponding to the site of treated dise ase. Left upper cervical lymph node measures 5 mm, unchanged, axial T2, likely site of treated disease. Prominent left submandibular space lymph node measures 6 mm, slightly larger from 5 mm, axial image 4 9. 7 mm right subareolar space lymph node, axial image 49 increased from 4 mm. Otherwise, no new cervical lymphadenopathy is seen. Glottic structures and tracheal column appear sera ar. Thyroid gland appears satisfactory. Atrophic submandibular and parotid glands. No lytic lesions within the cervical spine. CHEST: Heart normal size without pericardial effusion. Minimal coronary artery calcifications. Aorta normal caliber with conventional arch vessel branching anatomy. No thoracic lymphadenopathy. There are some calcified lower right paratracheal lymph nodes likely seq uela of prior granulomatous disease. Evaluation of the lungs shows 5 mm nodularity along the right major fissure at the midlung level, axi al image 32, likely subpleural lymph node. 6 mm peripheral right lower lobe pulmonary nodule, axial image 35 appears unchanged from the PET/CT o f 06/20/2019. No consolidation or pleural effusion. Tiny hiatal hernia. Moderate stool burden. Otherwise, visualized upper abdomen shows no gross abnorma l. Bones: No osseous destructive process. Focal levoconvex scoliosis along the cervical thoracic junctio n. IMPRESSION: NECK: 1. A PROMINENT SUBMANDIBULAR SPACE LYMPH NODE ON EITHER SIDE SHOWS MINIMAL INTERVAL ENLARGEMENT FROM 12/19/2019 MEASURING UP TO 7 MM VERSUS 4 MM, PREVIOUSLY. THESE MAY BE REACTIVE. ATTENTION ON FOLLOW-UP . THE PREVIOUSLY TREATED LYMPH NODES (ONE ON EITHER SIDE) REMAIN SMALL AND UNCHANGED. 2. MILD CIRCUMFERENTIAL MUCOSAL SPACE THICKENING IN THE HYPOPHARYNX LIKELY CHRONIC POSTTREATMENT [place] GE. SLIGHT INCREASED ASYMMETRIC EFFACEMENT RIGHT PIRIFORM SINUS LIKELY POSTTREATMENT CHANGES WELL. A GAIN, ATTENTION ON FOLLOW-UP. NO WELL-DEFINED MASS. CHEST: 3. A COUPLE PULMONARY NODULES ON THE RIGHT MEASURING UP TO 6 MM ARE SIMILAR DATING BACK TO 06/20/2019. CONTINUED SURVEILLANCE RECOMMENDED.
== END | disposition home or self-care (01) ==
LOC: RADCTMAIN 08:52
PROVIDERS: ATTEND Internal Medicine Hematology & Oncology
DX: J39.2 Other diseases of pharynx (principal); R91.8 Other nonspecific abnormal finding of lung field; R59.9 Enlarged lymph nodes, unspecified; J34.89 Other specified disorders of nose and nasal sinuses; C76.0 Malignant neoplasm of head, face and neck
CPT/HCPCS: 70491; 71260; Q9967

== ENCOUNTER → 2020-06-15 | Outpatient (CLI) | payer BC ==
--- NOTE | 2020-06-15 16:04 | CT ---
EXAMINATION TYPE: CT neck chest w con DATE OF EXAM: 06/15/2020 2:34 PM COMPARISON: Prior CT neck and chest 03/08/2020 HISTORY: Follow up throat cancer CT DLP: 766.7 mGycm Automated exposure control for dose reduction was used. CONTRAST: CT scan of the neck is performed following with IV Contrast, patient injected with 100 mL of Isovue 3 00. Axial images are obtained, coronal and sagittal reformatted images are reviewed. FINDINGS: Airway: Asymmetric appearance at the level of the hyoid shows that the piriform sinus is not seen at this level in the right. Parotid/submandibular glands: No gross abnormality seen. Carotid/Vascular Structures: Patent Osseous Structures: Spinal curvature is again noted Other: Chest shows no nodule, no pleural or pericardial effusion. No mediastinal, axillar, or hilar a denopathy. IMPRESSION: Asymmetry in the appearance of the pharyngeal soft tissues as described without identifi able mass is of questionable clinical significance, no evident defined mass or adenopathy.
== END | disposition home or self-care (01) ==
LOC: RADCTMAIN 14:02
PROVIDERS: ATTEND Internal Medicine Hematology & Oncology
DX: M79.89 Other specified soft tissue disorders (principal); C76.0 Malignant neoplasm of head, face and neck
CPT/HCPCS: 70491; 71260; Q9967

== ENCOUNTER → 2020-09-09 | Outpatient (CLI) | payer BC ==
--- NOTE | 2020-09-09 14:35 | CT ---
EXAMINATION TYPE: CT neck chest w con DATE OF EXAM: 09/09/2020 9:35 AM COMPARISON: CT neck and chest 06/25/2028, 03/08/2020. PET/CT 12/19/2019. HISTORY: throat CA. C76.0 CT DLP: 682.1 mGycm Automated exposure control for dose reduction was used. CONTRAST: CT scan of the neck is performed following with IV Contrast, patient injected with 100 mL of Isovue 3 00. Axial images are obtained, coronal and sagittal reformatted images are reviewed. FINDINGS: CT neck: Airway: Redemonstrated asymmetric appearance of the soft tissue at the level of the hyoid bone, with nonvisualization of the right piriform sinus, not significantly changed versus 03/08/2020 and 06/15/2020 CT comparisons. No discrete mass. Parotid/submandibular glands: No gross abnormality seen. Carotid/Vascular Structures: Patent. Osseous Structures: No aggressive osseous destructive lesions. Other: No new or increased lymphadenopathy. CT chest: The lungs are grossly clear. 6 mm pulmonary nodule of the right lower lobe (7:32) unchanged versus PET/CT comparison. No pleural effusion. No pneumothorax. No axillary, mediastinal, or hilar adenopathy. Redemonstrated right paratracheal calcified lymph node s. Cardiac size normal. No pericardial effusion. No thoracic aortic aneurysm. Small hiatal hernia. Normal adrenal glands. No aggressive osseous destructive lesions. IMPRESSION: 1. Unchanged thickening of the hypopharynx with effacement of the right piriform sinus, likely post t reatment change. No discrete mass or lymphadenopathy. 2. No metastatic disease of the chest.
== END | disposition home or self-care (01) ==
LOC: RADCTMAIN 08:44
PROVIDERS: ATTEND Internal Medicine Hematology & Oncology
DX: C76.0 Malignant neoplasm of head, face and neck (principal)
CPT/HCPCS: 70491; 71260; Q9967